=== PATIENT | female | born 1965 | race Caucasian/White ===

== ENCOUNTER 2021-03-24 16:32 | Emergency (ER) | payer BC ==
[2021-03-24 17:21] LABS: Urine Blood Negative (Negative); Urine Glucose Negative (Negative); Urine Protein Negative (Negative); Urine pH 6.5 (5.0-7.0)
[2021-03-24 18:01] LABS: Absolute Lymphocytes (CBC) 2.5 K/uL (0.7-4.9); Basophils % 0.2 % (0-1.3); Hematocrit 39.6 % (36.0-45.0); Lymphocytes % 31.8 % (15.3-44.8); MPV 8.2 fL (7.6-11.3)
[2021-03-24 18:16] LABS: ALT/SGPT 50 U/L (12-78); AST/SGOT 25 U/L (15-37); Albumin 4.3 g/dL (3.4-5.0); Alkaline Phosphatase 111 U/L (45-117); BUN Blood Urea Nitrogen 9 mg/dL (7-18); Bicarbonate 24 mmol/L (21-32); Bilirubin Direct < 0.1 mg/dL (0-0.2); Bilirubin Total 0.2 mg/dL (0.2-1.0); Glucose Level 103 mg/dL (74-106); Lipase 230 U/L (73-393); Potassium 3.8 mmol/L (3.5-5.1); Protein, Total 8.1 g/dL (6.4-8.2); Sodium Level 138 mmol/L (136-145)
--- NOTE | 2021-03-24 18:26 | RAD REPORT ---
EXAM DESCRIPTION: US - Abdomen Exam Limited - 03/24/2021 6:00 pm CLINICAL HISTORY: ABD PAIN COMPARISON: No comparisons FINDINGS: The liver demonstrates diffuse fatty infiltration.No focal liver lesion or intrahepatic bi liary dilatation Negative for cholelithiasis. No pericholecystic fluid. Negative sonographic Thacker's sign. The common bile duct is normal caliber measuring 4 millimeters. IMPRESSION: Hepatic steatosis. Negative for cholelithiasis or acute cholecystitis.
--- NOTE | 2021-03-24 19:07 | RAD REPORT ---
EXAM DESCRIPTION: CTAbdomen Pelvis W Contrast - 03/24/2021 6:56 pm CLINICAL HISTORY: ABD PAIN COMPARISON: No comparisonsAbdomen Exam Limited dated 03/24/2021None TECHNIQUE: CT of the abdomen and pelvis was performed. All CT scans are performed using dose optimization technique as appropriate and may include automated exposure control or mA/KV adjustment according to patient size. FINDINGS: Lower chest: No acute abnormality. Liver: Hepatic steatosis Biliary: No biliary ductal dilatation. Stomach: No significant focal abnormality. Duodenum: No significant focal abnormality. Pancreas: No significant abnormality. Spleen: No significant abnormality. Adrenal: No suspicious lesions. Kidney/ureter: No hydronephrosis. No renal calculi. Retroperitoneum: No retroperitoneal adenopathy. Vascular: No aneurysm. Bowel: No significant focal abnormality. Normal appendix. Moderate stool in the proximal colon Peritoneum: Small volume pelvic free fluid which is likely physiologic. Bladder: Grossly unremarkable. Reproductive: No adnexal masses. Bones: No acute fracture. Other: n/a IMPRESSION: No acute intra-abdominal or pelvic finding. Normal appendix.
[2021-03-24] MEDS ORDERED: KETOROLAC 30 MG/ML INJ ONE (19:09)
[2021-03-24] MEDS ORDERED: NA CHLORIDE 0.9% 1,000 ML ONE (19:09)
--- NOTE | 2021-03-24 20:04 | RAD REPORT ---
EXAM DESCRIPTION: RAD - Chest Single View - 03/24/2021 7:45 pm CLINICAL HISTORY: CHEST PAIN COMPARISON: Foot Left 3 View dated 03/05/2016; Foot Left 3 View dated 07/26/2014No comparisonsCHEST SI NGLE VIEW dated 05/03/2012; CHEST SINGLE VIEW dated 05/02/2012 FINDINGS: Lines: None. Lungs: No evidence of edema or pneumonia. Pleural: No significant pleural effusions or pneumothorax. Cardiac: The heart size is within normal limits. Bones: No acute fractures. Other: IMPRESSION: No acute cardiopulmonary disease.
--- NOTE | 2021-03-24 20:17 | EDPHYS ---
Physician Documentation [facility] Name: Kala Gustafson Age: 55 yrs Sex: Female : 1965 Arrival Date: 03/24/2021 Time: 16:38 Bed 28 Private MD: ED Physician Darien Khan HPI: 03/24 20:13 This 55 yrs old Female presents to ER via Ambulatory with complaints of kb Abdominal Pain. 20:13 The patient presents with abdominal pain in the right upper quadrant. The patient has kb not experienced similar symptoms in the past. The patient has not recently seen a physician. 20:14 Onset: The symptoms/episode began/occurred yesterday. The symptoms do not radiate. kb Associated signs and symptoms: none. The symptoms are described as constant. Modifying factors: The symptoms are alleviated by nothing, the symptoms are aggravated by breathing deeply, movement, pressure. Severity of pain: At its worst the pain was moderate in the emergency department the pain is unchanged. Pt reports she woke up with RUQ pain yesterday morning. States the pain has been constant, worse with deep breath, pressure and movement. Denies any other symptoms.. Historical: - Allergies: 16:54 No Known Allergies; ss - Home Meds: 16:54 None [Active]; ss - PMHx: 16:57 ovarian cyst; ss - PSHx: 16:54 section; Tonsillectomy; left knee surgery; ss - Immunization history:: Adult Immunizations up to date, Client reports receiving the 2nd dose of the Covid vaccine. - Social history:: Smoking status: Patient denies any tobacco usage or history of. Patient uses alcohol, but reports only rare drinking. ROS: 20:13 Constitutional: Negative for fever, chills, and weight loss. kb 20:13 Abdomen/GI: Positive for abdominal pain, Negative for nausea, vomiting, and diarrhea. 20:13 All other systems are negative. Exam: 20:15 Constitutional: This is a well developed, well nourished patient who is awake, alert, kb and in no acute distress. Head/Face: Normocephalic, atraumatic. ENT: Moist Mucous membranes Cardiovascular: Regular rate and rhythm with a normal S1 and S2. No gallops, murmurs, or rubs. No pulse deficits. Respiratory: Respirations even and unlabored. No increased work of breathing, no retractions or nasal flaring. Skin: Warm, dry with normal turgor. Normal color. MS/ Extremity: Pulses equal, no cyanosis. Neurovascular intact. Full, normal range of motion. Neuro: Awake and alert, GCS 15, oriented to person, place, time, and situation. Moves all extremities. Normal gait. Psych: Awake, alert, with orientation to person, place and time. Behavior, mood, and affect are within normal limits. 20:15 Abdomen/GI: Inspection: abdomen appears normal, Bowel sounds: normal, Palpation: soft, in all quadrants, moderate abdominal tenderness, in the right upper quadrant. Vital Signs: 16:51 BP 131 / 76; Pulse 98; Resp 18; Temp 98.1(O); Pulse Ox 99% on R/A; Weight 70.31 kg; ss Height 5 ft. 2 in. (157.48 cm); 20:37 BP 125 / 80; Pulse 87; Resp 16; Temp 98(O); Pulse Ox 100% on R/A; Pain 0/10; bc5 16:51 Body Mass Index 28.35 (70.31 kg, 157.48 cm) ss MDM: 17:00 Patient medically screened. kb 20:07 Data reviewed: vital signs, nurses notes. Data interpreted: Pulse oximetry: on room air kb is 99 %. Interpretation: normal. Counseling: I had a detailed discussion with the patient and/or guardian regarding: the historical points, exam findings, and any diagnostic results supporting the discharge/admit diagnosis, lab results, radiology results, the need for outpatient follow up, a family practitioner, to return to the emergency department if symptoms worsen or persist or if there are any questions or concerns that arise at home. 03/24 17:17 Order name: Basic Metabolic Panel; Complete Time: 18:17 kb 03/24 17:17 Order name: CBC with Diff; Complete Time: 18:19 kb 03/24 17:17 Order name: Hepatic Function; Complete Time: 18:17 kb 03/24 17:17 Order name: Lipase; Complete Time: 18:17 kb 03/24 17:17 Order name: US Abdomen Limited; Complete Time: 18:28 kb 03/24 17:20 Order name: Urine Dipstick-Ancillary; Complete Time: 17:26 EDMS 03/24 17:17 Order name: IV Saline Lock; Complete Time: 17:44 kb 03/24 17:17 Order name: Labs collected and sent; Complete Time: 17:44 kb 03/24 18:45 Order name: CT Abd/Pelvis - IV Contrast Only; Complete Time: 19:18 iw 03/24 19:19 Order name: Chest Single View XRAY; Complete Time: 20:07 kb Administered Medications: 18:48 Drug: NS 0.9% 1000 ml Route: IV; Rate: 1000 ml; Site: left hand; oh 20:35 Follow up: IV Status: Completed infusion; IV Intake: 1000ml bc5 18:48 Drug: Ketorolac 15 mg Route: IVP; Site: left hand; oh 20:35 Follow up: Response: Pain is decreased bc5 Disposition: 22:57 Co-signature as Attending Physician, Darien Khan MD I agree with the assessment and kdr plan of care. Disposition Summary: 03/24/21 20:16 Discharge Ordered Location: Home kb Condition: Stable kb Diagnosis - Upper abdominal pain, unspecified kb Followup: kb - With: Emergency Department - When: As needed - Reason: Worsening of condition Followup: kb - With: Private Physician - When: 2 - 3 days - Reason: Recheck today's complaints, Continuance of care, Re-evaluation by your physician Discharge Instructions: - Discharge Summary Sheet kb - Abdominal Pain, Adult, [id number] kb Forms: - Medication Reconciliation Form kb - Thank You Letter kb - Antibiotic Education kb - Prescription Opioid Use kb Prescriptions: - Cyclobenzaprine 10 mg Oral Tablet - take 1 tablet by ORAL route every 8 hours As needed; 21 tablet; Refills: 0, kb Product Selection Permitted - Diclofenac Sodium 75 mg Oral tablet,delayed release (DR/EC) - take 1 tablet by ORAL route 2 times per day As needed; 30 tablet; Refills: 0, kb Product Selection Permitted Signatures: Dispatcher [employer] EDDC Shanta Alexandre, MOLD SANDER-C MOLD SANDER-Darien Mccall MD MD [facility] Daphne Denton RN RN Teodoro Phelps RN RN Emy Franco RN bc5 Corrections: (The following items were deleted from the chart) 16:57 16:54 PMHx: None; [facility] 18:46 18:28 Abdomen Pelvis W Con+CT.RAD.BRZ ordered. EDMS EDMS 19:23 19:23 Urine Dipstick-Ancillary ordered. kb kb
--- NOTE | 2021-03-24 20:17 | ER ---
Nurse's Notes [facility] Name: Kala Gustafson Age: 55 yrs Sex: Female : 1965 Arrival Date: 03/24/2021 Time: 16:38 Bed 28 Private MD: Diagnosis: Upper abdominal pain, unspecified Presentation: 03/24 16:51 Chief complaint: Patient states: RUQ pain since yesterday morning, waking pt up. pt ss reports nausea when someone pushes on it. denies vomiting and diarrhea. pt reports that she feels as though "throat glands are swollen and sensitive since this morning and hurts to breathe.". Coronavirus screen: At this time, unable to obtain information related to travel outside the [place] Ebola Screen: No symptoms or risks identified at this time. Initial Sepsis Screen: Does the patient meet any 2 criteria? No. Patient's initial sepsis screen is negative. Does the patient have a suspected source of infection? No. Patient's initial sepsis screen is negative. Risk Assessment: Do you want to hurt yourself or someone else? Patient reports no desire to harm self or others. Onset of symptoms is unknown. 16:51 Method Of Arrival: Ambulatory ss 16:51 Acuity: [place] 3 ss Triage Assessment: 16:54 General: Appears in no apparent distress. comfortable, Behavior is calm, cooperative, ss appropriate for age. Pain: Complains of pain in RUQ Pain radiates to across abdomen. EENT: No deficits noted. Neuro: No deficits noted. Cardiovascular: No deficits noted. Respiratory: No deficits noted. GI: Abdomen is distended, Abd is soft. : No deficits noted. Reports "I noticed bubbles in my urine". Derm: No deficits noted. Musculoskeletal: No deficits noted. Historical: - Allergies: 16:54 No Known Allergies; ss - Home Meds: 16:54 None [Active]; ss - PMHx: 16:57 ovarian cyst; ss - PSHx: 16:54 section; Tonsillectomy; left knee surgery; ss - Immunization history:: Adult Immunizations up to date, Client reports receiving the 2nd dose of the Covid vaccine. - Social history:: Smoking status: Patient denies any tobacco usage or history of. Patient uses alcohol, but reports only rare drinking. Screenin:36 Abuse screen: Denies threats or abuse. Nutritional screening: No deficits noted. oh Tuberculosis screening: No symptoms or risk factors identified. Fall Risk None identified. Assessment: 18:36 GI: Reports lower abdominal pain, denies N/V. oh 20:36 GI: Bowel sounds present X 4 quads. bc5 Vital Signs: 16:51 BP 131 / 76; Pulse 98; Resp 18; Temp 98.1(O); Pulse Ox 99% on R/A; Weight 70.31 kg; ss Height 5 ft. 2 in. (157.48 cm); 20:37 BP 125 / 80; Pulse 87; Resp 16; Temp 98(O); Pulse Ox 100% on R/A; Pain 0/10; bc5 16:51 Body Mass Index 28.35 (70.31 kg, 157.48 cm) ss ED Course: 16:38 Patient arrived in ED. mr 16:45 Shanta Alexandre, [facility] kb 16:45 Darien Khan MD is Attending Physician. kb 16:54 Triage completed. ss 17:00 Inserted saline lock: 22 gauge in left hand, using aseptic technique. Blood collected. oh 17:10 Teodoro Phelps, RN is Primary Nurse. oh 18:00 US Abdomen Limited In Process Unspecified. EDMS 18:37 Bed in low position. Call light in reach. oh 18:56 CT Abd/Pelvis - IV Contrast Only In Process Unspecified. EDMS 19:45 Chest Single View XRAY In Process Unspecified. EDMS 20:36 No provider procedures requiring assistance completed. IV discontinued, intact, bc5 bleeding controlled, No redness/swelling at site. Pressure dressing applied. 20:36 Arm band placed on right wrist. bc5 Administered Medications: 18:48 Drug: NS 0.9% 1000 ml Route: IV; Rate: 1000 ml; Site: left hand; oh 20:35 Follow up: IV Status: Completed infusion; IV Intake: 1000ml bc5 18:48 Drug: Ketorolac 15 mg Route: IVP; Site: left hand; oh 20:35 Follow up: Response: Pain is decreased bc5 Intake: 20:35 IV: 1000ml; Total: 1000ml. bc5 Outcome: 20:16 Discharge ordered by . kb 20:36 Discharged to home ambulatory. bc5 20:36 Condition: improved 20:36 Discharge instructions given to patient, Instructed on discharge instructions, follow up and referral plans. medication usage, Prescriptions given X 2. 20:38 Patient left the ED. bc5 Signatures: Dispatcher [employer] EDWI Shanta Alexandre, GRIS-Shannon SANCHEZP-Manide Michelle Stockton Shelby, RN RN ss Emy Smalls RN RN 5 Teodoro Phelps RN RN oh Corrections: (The following items were deleted from the chart) 16:57 16:54 PMHx: None; [facility]
[2021-03-24 20:57] VITALS: BP 125/80; TEMP 98; O2SAT 100
== END 2021-03-24 20:38 | disposition home or self-care (01) ==
LOC: ER 16:32
DX: R10.11 Right upper quadrant pain (principal)
CPT/HCPCS: 85025; 80048; 36415; 80076; 81003; 83690; 74177; 71045; 76705; Q9967; J7030